=== PATIENT | male | born 1985 | race Caucasian/White ===

== ENCOUNTER 2019-10-01 15:30 | Emergency (ER) | payer SELFPAY ==
--- NOTE | ~2019-10-01 | CT_ITS ---
EXAMINATION: CT brain wo con INDICATION: Head injury COMPARISON: 04/25/2005 TECHNIQUE: Standard unenhanced head CT. The dose-length product (DLP) was 681.00 mGy-cm. The mA was a djusted according to patient size. Iterative reconstruction technique was employed. FINDINGS: There is no intracranial hemorrhage, acute infarction, or abnormal mass lesion. The ventric les are normal. There is no abnormal mass effect or midline shift. The atkins-white matter differentiat ion is normal. The basal cisterns are patent. The orbits are normal. The paranasal sinuses, mastoids and calvarium are normal. IMPRESSION: 1. No acute intracranial abnormality. Reviewed, dictated and finalized at location A.
[2019-10-01 15:38] VITALS: BP 161/116; PULSE 64; RESP 18; TEMP 36.7; O2SAT 100
--- NOTE | 2019-10-01 16:12 | WC.ED.TRAUMA ---
HPI - Trauma General Chief Complaint: Head Injury <Julio Amaro PA-C - Last Filed: 10/01/19 16:37> Stated Complaint: head injury <Julio Amaro PA-C - Last Filed: 10/01/19 16:37> Time Seen by Provider: 10/01/19 15:32 <ROBERTH Sanford Last Filed: 10/01/19 16:37> Source: patient <Julio Amaro PA-C - Last Filed: 10/01/19 16:37> Mode of arrival: ambulatory <Julio Amaro PA-C - Last Filed: 10/01/19 16:37> Limitations: no limitations <Julio Amaro PA-C - Last Filed: 10/01/19 16:37> History of Present Illness HPI narrative: Patient is a 34-year-old male who presents per private vehicle for evaluation of head injury that occurred last night patient was standing when he was struck in the head behind the left ear by a baseball that was thrown by a teenager patient notes he did sustain loss of consciousness has had moderate aching pain to the postauricular region has some nausea has tried gcey-xgs-xibnutu medication with minimal improvement presents in no distress denies other injuries or complaints <Julio Amaro PA-C - Last Filed: 10/01/19 16:37> Related Data Allergies/Adverse Reactions: Allergies Allergy/AdvReac Type Severity Reaction Status Date / Time No Known Allergies Allergy Verified 09/27/19 09:48 <Julio Amaro PA-C - Last Filed: 10/01/19 16:37> Review of Systems Review of Systems: All systems reviewed & are unremarkable except as noted in HPI and below <Julio Amaro PA-C - Last Filed: 10/01/19 16:37> PMFSH Past Medical History Medical History: Medical History GERD without esophagitis <Julio Amaro PA-C - Last Filed: 10/01/19 16:37> Social History Social History: Social History Smoking status: Never smoker Alcohol intake: never Gender identity (if verbalized by the patient): Male <Julio Amaro PA-C - Last Filed: 10/01/19 16:37> Exam Narrative: Exam Narrative: GENERAL: Well-appearing, well-nourished, and in no acute distress. HEAD: Normocephalic, tenderness of the posterior auricular region left-sided no deformities noted other than a small abrasion EYES: PERRLA and EOMI. ENT: Nares clear, no rhinorrhea or epistaxis. Mucous membranes moist. Oropharynx without tonsillar hypertrophy exudate or other lesions NECK: Supple. No adenopathy or masses. CHEST: Clear to auscultation. No respiratory distress. No wheezes rales or rhonchi HEART: Regular rate and rhythm. No murmur heard. EXTREMITIES: Normal range of motion. No edema. No cervical spine tenderness to palpation SKIN: Warm, dry, no rash. NEURO: No focal deficits. Alert and oriented x3. Cranial nerves II through XII grossly intact she has a PSYCH: Normal mood and affect. <ROBERTH Sanford Last Filed: 10/01/19 16:37> Course Course Emergency Course: Patient in the room at this time aware of case findings treatment plan and diagnosis agreeing to follow-up as directed or to return if symptoms worsen or concerns <ROBERTH Sanford Last Filed: 10/01/19 16:37> Vital Signs Vital signs: Vital Signs Temperature 98.1 F 10/01/19 15:38 Pulse Rate 64 10/01/19 15:38 Respiratory Rate 18 10/01/19 15:38 Blood Pressure 161/116 H 10/01/19 15:38 Pulse Oximetry 100 10/01/19 15:38 Temperature 98.1 F 10/01/19 15:38 Pulse Rate 64 10/01/19 15:38 Respiratory Rate 18 10/01/19 15:38 Blood Pressure 161/116 H 10/01/19 15:38 Pulse Oximetry 100 10/01/19 15:38 <ROBERTH Sanford Last Filed: 10/01/19 16:37> Vital Signs Temperature 98.1 F 10/01/19 15:38 Pulse Rate 64 10/01/19 15:38 Respiratory Rate 18 10/01/19 15:38 Blood Pressure 161/116 H 10/01/19 15:38 Pulse Oximetry 100 10/01/19 15:38 Temperature 98.1 F 10/01/19 15:38 Pulse Rate 64 10/01/19 15:38
[2019-10-01 17:02] VITALS: BP 139/93; PULSE 77; RESP 16; TEMP 37; O2SAT 96
== END 2019-10-01 17:03 | disposition home or self-care (01) ==
PROVIDERS: Emergency Provider Emergency Medicine; PCP Family Medicine
DX: S09.90XA Unspecified injury of head, initial encounter (principal); W21.03XA Struck by baseball, initial encounter; K21.9 Gastro-esophageal reflux disease without esophagitis
CPT/HCPCS: 70450; 99284

== ENCOUNTER 2021-06-03 16:04 | Emergency (ER) | payer SELFPAY ==
--- NOTE | ~2021-06-03 | XR_ITS ---
EXAMINATION: XR ankle RT min 3V INDICATION: Ankle pain TECHNIQUE: Four views of the right ankle are obtained COMPARISON: None available FINDINGS: There is soft tissue swelling of ankle. A well-circumscribed oval density distal to the fib christopher has the appearance of an os fibulare. Bone alignment is normal. IMPRESSION: 1. Ankle soft tissue swelling without acute osseous findings. Reviewed, dictated and finalized at location F.
[2021-06-03 16:11] VITALS: BP 138/90; PULSE 62; RESP 18; TEMP 36.7; O2SAT 99
--- NOTE | 2021-06-03 16:17 | ED.LOWEXIN ---
HPI - Extremity Injury (Lower) General Chief Complaint: Extremity Injury, Lower Stated Complaint: Rt Ankle Pain Time Seen by Provider: 06/03/21 16:43 Source: patient and RN notes reviewed Mode of arrival: ambulatory Limitations: no limitations History of Present Illness HPI Narrative: 36-year-old male presents with concern for right ankle pain. He reports he rolled his ankle today. He reports pain at rest with worsening pain with weightbearing and range of motion. He reports that is helpful to wear his tall boot. He denies any open skin, bruising, swelling, redness. He reports pain is exacerbated when he flexes his toes complaint: ankle injury Related Data Allergies Allergy/AdvReac Type Severity Reaction Status Date / Time No Known Allergies Allergy Verified 06/03/21 16:14 Review of Systems Review of Systems: CONSTITUTIONAL: Denies malaise, chills, sweats, or fever. SKIN: Denies rash or itching, open skin, laceration, abrasion, redness, warmth, swelling. MUSCULOSKELETAL: Reports right ankle pain NEUROLOGIC: Denies numbness, weakness All systems reviewed & are unremarkable except as noted in HPI and below PMFSH Past Medical History Medical History (Updated 06/03/21 @ 16:42 by Twyla Zhang NP) Arthritis of right acromioclavicular joint GERD without esophagitis Lateral epicondylitis, right elbow Social History Social History Smoking status: Never smoker Alcohol intake: never Gender identity (if verbalized by the patient): Male Comments At time of signature, agree with nursing past medical, surgical, social and family history. There is no relevant family history pertinent to the presenting complaint Exam Narrative: GENERAL: Well-appearing, well-nourished, and in no acute distress. HEAD: Normocephalic, atraumatic. EYES: PERRLA, conjunctivae clear NECK: Supple. CHEST: Speaks in full sentences. No respiratory distress. HEART: Regular rate and rhythm. Normal and equal peripheral pulses. EXTREMITIES: Right ankle, foot, digits have normal strength and sensation, normal range of motion. No edema or ecchymosis. 5/5 strength with digit flexion and extension. Normal sensation with sensitivity to light touch and pain. Lateral and medial tenderness. No open wounds, no skin tenting, no devitalized tissue or atrophy, no trophic changes, no obvious deformity, alignment normal, nearby joints and structures intact. Distal pulses palpable and equal bilaterally, skin warm, dry, pink. Capillary refill less than 3 seconds. SKIN: Warm, dry, no rash. NEURO: Alert and oriented x3. PSYCH: Normal mood and affect Course Course Emergency Course: Patient is aware of diagnosis, understands and agrees to treatment plan. Anticipatory guidance given. Patient agrees to follow-up as directed and is aware of reasons to seek care at the emergency department. Portions of this record may have been created with voice recognition software Level of Care: Express Care Visit Vital Signs Vital signs: Vital Signs Temperature 98.1 F 06/03/21 16:11 Pulse Rate 62 06/03/21 16:11 Respiratory Rate 18 06/03/21 16:11 Blood Pressure 138/90 06/03/21 16:11 Pulse Oximetry 99 06/03/21 16:11 Temperature 98.1 F 06/03/21 16:11 Pulse Rate 62 06/03/21 16:11 Respiratory Rate 18 06/03/21 16:11 Blood Pressure 138/90 06/03/21 16:11 Pulse Oximetry 99 06/03/21 16:11 Reviewed. MDM - Extremity Injury (Lower) MDM Narrative Medical decision making narrative: Patients injury and pain is consistent with musculoskeletal etiology. No signs of neurological or vascular compromise on exam. Compartments and tissues are soft without signs of compartment syndrome. Pain is felt appropriate for further evaluation on an outpatient basis. Imaging Data My impression: Images reviewed, interpreted by radiologist, agree, see report. Radiologist's impression: EXAMINATION: XR ankle RT min 3V IN
== END 2021-06-03 16:46 | disposition home or self-care (01) ==
PROVIDERS: Emergency Provider Nurse Practitioner; PCP Family Medicine
DX: S93.401A Sprain of unspecified ligament of right ankle, initial encounter (principal); S96.911A Strain of unspecified muscle and tendon at ankle and foot level, right foot, initial encounter; X50.9XXA Other and unspecified overexertion or strenuous movements or postures, initial encounter; K21.9 Gastro-esophageal reflux disease without esophagitis; M19.011 Primary osteoarthritis, right shoulder
CPT/HCPCS: 73610; 99213; G0463

== ENCOUNTER 2021-06-05 16:22 | Emergency (ER) | payer SELFPAY ==
--- NOTE | ~2021-06-05 | XR_ITS ---
EXAM: XR ankle RT min 3V HISTORY: right ankle pain,twisted ankle stepping off porch x3days ago COMPARISON: 06/03/2021 FINDINGS: Normal mineralization. No acute fracture or dislocation. No lytic or blastic lesion. Mild degenerative change at the tibiotalar joint. Old lateral malleolus avulsion fracture versus ossicle. No erosion or periosteal change. Soft tissues within normal limits. Tibiotalar joint fluid. IMPRESSION: No acute osseous finding in the right ankle. Right ankle effusion. Reviewed, dictated and finalized at location K.
[2021-06-05 16:22] VITALS: BP 155/89; PULSE 89; RESP 17; TEMP 36.9; O2SAT 99
--- NOTE | 2021-06-05 17:39 | ED.GENADULT ---
HPI - General Adult General Chief complaint: Extremity Injury, Lower Stated complaint: RIGHT ANKLE INJURY Time Seen by Provider: 06/05/21 16:25 Source: patient and family History of Present Illness HPI narrative: 36-year-old male presented emerged department for evaluation of persistent right ankle pain. Patient states on he rolled his ankle while stepping off a step. Patient did have follow-up at a [facility] care and was told he did not have any acute fractures. Patient states on Monday he did weight-bear on the right ankle and thinks he may have strained his ankle further. Patient reports increased swelling and ecchymosis of the right ankle. Patient does have a prior history of right ankle fracture as a child. Related Data Allergies Allergy/AdvReac Type Severity Reaction Status Date / Time No Known Allergies Allergy Verified 06/03/21 16:14 Review of Systems Review of Systems: CONSTITUTIONAL: Denies fever, chills, or sweats. SKIN: Denies rash or itching. MUSCULOSKELETAL: See HPI NEUROLOGIC: Denies headache, numbness, or weakness. [facility] Past Medical History Medical History (Updated 06/05/21 @ 17:47 by Vincent Rios MD) Arthritis of right acromioclavicular joint GERD without esophagitis Lateral epicondylitis, right elbow Social History Social History Smoking status: Never smoker Alcohol intake: never Gender identity (if verbalized by the patient): Male Exam Narrative: APPEARANCE: Well appearing, no pain, no distress, well-nourished. HEAD: normocephalic, atraumatic. RESPIRATORY: Airway patent, respirations nonlabored. Clear to auscultation bilaterally, no rales, rhonchi, wheezing. CARDIOVASCULAR: Regular rate and rhythm without murmurs rubs or gallops. ABDOMINAL: Soft, nontender, nondistended, normal bowel sounds MUSCULOSKELETAL: Right ankle swelling medially and laterally. Ecchymosis medially and laterally. No proximal tib-fib tenderness to palpation. No foot tenderness to palpation NEURO: Alert. Cranial nerves II through XII intact. Good gait. Good coordination SKIN: Warm, dry. Normal Color Course Course Emergency Course: Patient was updated on the results of his x-ray. Patient was placed in Hector wrap for comfort and provided crutches for nonweightbearing. Vital Signs Vital signs: Vital Signs Temperature 98.4 F 06/05/21 16:22 Pulse Rate 89 06/05/21 16:22 Respiratory Rate 17 06/05/21 16:22 Blood Pressure 155/89 H 06/05/21 16:22 Pulse Oximetry 99 06/05/21 16:22 Temperature 98.4 F 06/05/21 16:22 Pulse Rate 89 06/05/21 16:22 Respiratory Rate 17 06/05/21 16:22 Blood Pressure 155/89 H 06/05/21 16:22 Pulse Oximetry 99 06/05/21 16:22 Medical Decision Making Vital Signs Vital Signs: Vital Signs Temperature 98.4 F 06/05/21 16:22 Pulse Rate 89 06/05/21 16:22 Respiratory Rate 17 06/05/21 16:22 Blood Pressure 155/89 H 06/05/21 16:22 Pulse Oximetry 99 06/05/21 16:22 Temperature 98.4 F 06/05/21 16:22 Pulse Rate 89 06/05/21 16:22 Respiratory Rate 17 06/05/21 16:22 Blood Pressure 155/89 H 06/05/21 16:22 Pulse Oximetry 99 06/05/21 16:22 Imaging Data Radiologist's impression: Impressions Ankle X-Ray 06/05/21 16:49 IMPRESSION: No acute osseous finding in the right ankle. Right ankle effusion. Discharge Plan Discharge Clinical Impression: Abrasion, right ankle, initial encounter Patient Disposition: Home, Self-Care Condition: Stable Instructions: Antibiotic Form, Ankle Sprain (ED), Crutch Instructions (ED) Additional Instructions: Tylenol and ibuprofen for pain control. Substitute Tylenol for [place] if you need additional pain control. Hector wrap and stirrup splint for increased ankle support. Crutches for nonweightbearing. Have close follow-up with your primary care physician. If you have any worsening symptoms then please call or
[2021-06-05] MEDS: HYDROcodone/acetaminophen (*CRX) 5-325 MG TABLET 1 TAB PO (17:50)
== END 2021-06-05 17:53 | disposition home or self-care (01) ==
PROVIDERS: Emergency Provider Emergency Medicine; PCP Family Medicine
DX: S90.511A Abrasion, right ankle, initial encounter (principal); M19.011 Primary osteoarthritis, right shoulder; K21.9 Gastro-esophageal reflux disease without esophagitis; X50.9XXA Other and unspecified overexertion or strenuous movements or postures, initial encounter
CPT/HCPCS: 73610; 99283; A9270

== ENCOUNTER → 2021-08-25 09:07 | Outpatient (CLI) | payer SELFPAY ==
--- NOTE | ~2021-08-25 | MR_ITS ---
EXAMINATION: MR elbow RT wo con DATE: 08/25/2021 09:49 INDICATION: Right elbow pain TECHNIQUE: Magnetic resonance imaging (MRI) of the right elbow was performed without intravenous cont rast. Sequences included coronal, axial, and sagittal PD-weighted FS FSE and coronal, axial, and sagi ttal PD-weighted FSE. COMPARISON: None FINDINGS: Osseous/other: Normal alignment. Normal marrow signal with no marrow edema, fracture, osteochondral lesion or abnor mal marrow replacing process. Mild nonuniform partial-thickness cartilage loss with smooth chondral s urface along portions of the radial head without degenerative subchondral changes. Remaining cartilag e appears normal. Tendons: Triceps, biceps brachii and brachialis tendons are normal. Common flexor tendon wad is normal. Moder ate tendinopathy without discrete tear of the common extensor tendon wad. Ligaments: The medial collateral ligament complex is normal. Partial tear of the lateral collateral ligament com plex with partial avulsion of the superficial aspect of the humeral footplate of the lateral collater al ligament and involving greater than 50% of the cross-sectional area of the ligament and with minim al partial tear of the humeral side of the lateral ulnar collateral ligament portion of the ligament complex. Annular component of the ligament complex is normal. Cubital tunnel: Cubital tunnel is unremarkable with normal signal and caliber of the ulnar nerve. Fluid: Physiologic amount of fluid the elbow joint. IMPRESSION: 1. Partial tear of the lateral collateral ligament complex. 2. Moderate tendinopathy without discrete tear of the common extensor tendon wad. 3. 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 Reviewed, dictated and finalized at location B. IMPRESSION: 1. Partial tear of the lateral collateral ligament complex. 2. Moderate tendinopathy without discrete tear of the common extensor tendon wa d. 3. Mild radiocapitellar osteoarthritis with mild partial-thickness cartilage lo ss along the radial head.
== END ==
PROVIDERS: PCP Family Medicine; Visit Provider Orthopaedic Surgery
DX: M19.021 Primary osteoarthritis, right elbow (principal); S53.431A Radial collateral ligament sprain of right elbow, initial encounter
CPT/HCPCS: 73221

== ENCOUNTER 2021-10-01 10:38 | Emergency (ER) | payer SELFPAY ==
[2021-10-01 10:59] VITALS: BP 142/95; PULSE 58; RESP 18; TEMP 36.3; O2SAT 100
--- NOTE | 2021-10-01 11:32 | ED.GENADULT ---
HPI - General Adult General Chief complaint: Wound/Laceration Stated complaint: Head Laceration History of Present Illness HPI narrative: Patient is a 36-year-old male who presents to the [facility] via POV for an evaluation of a scalp laceration that occurred this morning. Patient reports he was walking in his garage when he accidentally scraped his head on a metal shelf. Denies cleaning the wound after the incident. He does report some minor bleeding that has resolved. He has not sure if he is up-to-date on tetanus immunization. Related Data Home Medications Medication Instructions Recorded Confirmed pantoprazole 20 mg tablet,delayed 20 mg DAILY 10/01/21 10/01/21 release Allergies Allergy/AdvReac Type Severity Reaction Status Date / Time No Known Allergies Allergy Verified 10/01/21 11:07 Review of Systems Review of Systems: Pertinent negatives: fever, chills, sweats, change in appetite, poor p.o. intake, headache, dizziness, lymphadenopathy, vision changes, swelling, erythema, weakness, syncope, vertigo, LOC, seizure activity, memory loss, difficulty with coordination/gait/equilibrium, paresthesias, abdominal pain, nausea, vomiting, diarrhea, constipation, shortness of breath, cough, chest pain, and heart palpitations/murmurs. [facility] Past Medical History Medical History Arthritis of right acromioclavicular joint GERD without esophagitis Lateral epicondylitis, right elbow Social History Social History Smoking status: Never smoker Alcohol intake: never Gender identity (if verbalized by the patient): Male Comments I have reviewed and agree with the patient's past medical, surgical, social, and family hx as documented by the RN. There is no relevant family history pertinent to the presenting complaint. Exam Narrative: GENERAL: Well-appearing, well-nourished, and in no acute distress. HEAD: Normocephalic. No facial swelling appreciated. 5 cm superficial laceration noted to center of left and right parietal area. Laceration is clean and linear. EYES: PERRLA and EOMI. No evidence of erythema, swelling, or drainage. ENT: Nares clear, no rhinorrhea or epistaxis.Mucous membranes moist and pink. Uvula is midline without erythema and swelling. No evidence of obstruction, petechial rash, cobblestoning, lesions, ulcers, erythema, swelling, exudates, peritonsillar abscess, tenting, or drooling. Breath odor and voice normal. NECK: Supple. No Lymphadenopathy or nuchal rigidity appreciated. CHEST: Bilateral lung sneed are clear to auscultation. No respiratory distress. No evidence of cough or pleuritic cp upon examination. HEART: Bradycardia with rate of 58. Regular rhythm. No murmur, gallop, or rub heard. EXTREMITIES: Normal range of motion. No edema. SKIN: Warm, dry. No evidence of cellulitis, abscess, streaking, induration, abrasions/lacerations, petechiae, hematoma, contusion, drainage, or bleeding. NEURO: No focal deficits. Alert and oriented x3. SPECIAL OBSERVATIONS: Smiling. Laughing. No evidence of discomfort. Course Course Level of Care: Express Care Visit Vital Signs Vital signs: Vital Signs Temperature 97.4 F L 10/01/21 10:59 Pulse Rate 58 L 10/01/21 10:59 Respiratory Rate 18 10/01/21 10:59 Blood Pressure 142/95 H 10/01/21 10:59 Pulse Oximetry 100 10/01/21 10:59 Oxygen Delivery Room Air 10/01/21 10:59 Temperature 97.4 F L 10/01/21 10:59 Pulse Rate 58 L 10/01/21 10:59 Respiratory Rate 18 10/01/21 10:59 Blood Pressure 142/95 H 10/01/21 10:59 Pulse Oximetry 100 10/01/21 10:59 Oxygen Delivery Room Air 10/01/21 10:59 Procedures Laceration Laceration 1: Date: 10/01/21 Time: 11:36 Site: scalp Size (cm): 5 Description: linear Depth: simple, single layer ====== Skin Level ======
== END 2021-10-01 11:43 | disposition home or self-care (01) ==
PROVIDERS: Emergency Provider Nurse Practitioner Family; PCP Family Medicine
DX: S01.01XA Laceration without foreign body of scalp, initial encounter (principal); W22.8XXA Striking against or struck by other objects, initial encounter; M19.011 Primary osteoarthritis, right shoulder; K21.9 Gastro-esophageal reflux disease without esophagitis
CPT/HCPCS: 12002; 99212; G0463

== ENCOUNTER 2021-10-26 00:34 | Day surgery (SDC) | payer SELFPAY ==
[2021-10-21 14:52] VITALS: BMI 27.1
--- NOTE | 2021-10-21 15:06 | PC.NURSE ---
Report to the Outpatient Waiting Room, entrance under the green pavilion located off [facility], at time ___629____ on date __10/26/21 . OR Time: . Time changes happen often and if your time is changed the preop area will call you the afternoon before. - You and your visitor will be asked to self-screen and do not enter if you have any COVID symptoms. - Only one visitor and NO children visitors are allowed at this time. - The patient visitor is requested to leave or wait in car when not with patient due to restrictions. - A mask is required within the hospital. Patients may have clear liquids (water, carbonated beverages, clear teas, apple juice) until 3 hours prior to surgery with a maximum of 20 ounces. - No food from midnight until time of surgery - Infants may have breast milk until 4 hours before surgery, formula 6 hours prior to surgery. - Children will be allowed to drink immediately following surgery. If applicable, please bring a bottle or sippy cup to assist with drinking. Juice, water, soda, and popsicles are readily available. For infants on formula, please bring formula the day of surgery. Pacifiers are allowed. Take the following medications with a SIP of water the morning of surgery: ____N/A Medications to discontinue per physician N/A Date to take last dose Please no make-up, nail ivorian, hairspray, perfume, deodorant, or body powder the day of surgery. No jewelry (including any body piercings) or valuables the day of surgery, leave them at home. Please take a shower or bath the night before, or the morning of, surgery with an antibacterial soap. Wear comfortable, loose fitting clothing. Children are encouraged to wear pajamas. - Jewelry must be removed prior to entering the operating room. Rings and piercings that are not removed may be cut off. - The hospital will not accept responsibility for valuables. - Please leave all valuables, including medications, at home the day of surgery. If you are going home after surgery, a licensed trolley coach driver must drive you home. - NO public transportation without another adult. - We recommend that an adult stay with you for 24 hours following discharge. - We also recommend that you do not drive, make important decision, drink alcoholic beverages, or take any drugs that were not prescribed by your health care provider for at least 24 hours after your discharge time. For Pediatric surgeries, we recommend two adults accompany the child home (only one inside the building at this time). Follow any additional instructions given to you from your surgeon. If you or anyone in your household have experienced Covid symptoms in the past week, please notify your surgeon or the nurse liaison at the phone number below for possible testing. Telephone instructions given to __PATIENT and asked if any additional questions and then verbalized understanding. Patient advised to call surgeon office or pre surgery nurse liaison [phone] if any additional questions.
[2021-10-26] VITALS (9 sets, daily range): BP systolic 111–148; BP diastolic 55–91; PULSE 41–59; RESP 11–16; TEMP 36.3–36.4; O2SAT 99–100
[2021-10-26] MEDS: LACTATED RINGERS 1,000 ML 30 ML IV CONT (07:10)
[2021-10-26] MEDS: ACETAMINOPHEN 500 MG TABLET 1000 MG PO (07:15)
[2021-10-26] MEDS: KETOROLAC 15 MG/ML VIAL (*BKC) IV PUSH (07:15)
--- NOTE | 2021-10-26 07:16 | P.PNAN_ITS ---
Anes - Initial Pre Proc Eval Procedure: Operation Date: 10/26/21 08:30 Proposed Procedures p Debride Right Lateral Epicondyle - Lux Zavala MD Date/Time: 10/26/21 07:16 Surgeon: Lux Zavala MD Pre Op Diagnosis: right lateral epicondylitis Patient Data Age: 36 Gender: M Height: 1.78 m Weight: 86 kg Allergies Allergy/AdvReac Type Severity Reaction Status Date / Time No Known Allergies Allergy Verified 10/21/21 15:05 Home Medications Medication Instructions Recorded Confirmed Type pantoprazole 20 mg tablet,delayed 20 mg PO DAILY 10/01/21 10/19/21 History release Patient hx anesthesia problems: none Family hx anesthesia problems: none Results Review: All pre-operative results and documents have been reviewed as part of the pre- operative evaluation. [facility] Past Medical History Medical History Arthritis of right acromioclavicular joint BMI 27.0-27.9,adult GERD without esophagitis Laceration of head Lateral epicondylitis, right elbow Social History Social History Smoking status: Never smoker Alcohol intake: never Gender identity (if verbalized by the patient): Male Spiritual care concerns: No Anes - Eval Final PreProcedure Day of Procedure 10/26/21 07:16 Patient weight: overweight Heart: regular rate and rhythm Lungs: clear to auscultation Airway: Mallampati scale class II Neurological: alert and oriented Last oral intake: >/= 8 hours ASA classification: II Emergent: no Anesthetic plan: proceed Anesthesia type and monitoring: general LMA and standard monitoring Results Review: All pre-operative results and documents have been reviewed as part of the pre- operative evaluation. Informed Consent: The patient's anesthetic plan and its attendant risks and benefits were discussed with the patient/family/POA. Questions were solicited and answers provided to the satisfaction of the patient/family/POA.
--- NOTE | 2021-10-26 08:12 | WPDHPUPDATE1 ---
History and Physical Update Update Date/Time: 10/26/21 08:12 History and Physical has been reviewed, including an updated exam of the patient. There are NO changes in the patient's condition. Risks, benefits, and alternatives have been discussed and questions answered. Patient agrees to proceed with procedure.
[2021-10-26] MEDS: ceFAZolin 2 GM/D5W 50 ML 2 GM/50 ML BAG IVPB (08:30)
[2021-10-26] MEDS: BUPIVACAINE/EPINEPHRINE 0.25% 50 ML VIAL INFILTRATE (08:56)
--- NOTE | 2021-10-26 09:27 | P.OP_ITS ---
Procedure Note - Detailed Date of Procedure 10/26/21 Pre-op Diagnosis right lateral epicondylitis Post-op Diagnosis Same Procedure Performed Debridement right lateral epicondyle Surgeon Lux Zavala MD Major Account Representative Janette Ryan Anesthesia General Description of Procedure The patient was identified and proper site identified. He was taken to the operating room and transferred to the OR table placing him supine taking care to pad his torso and extremities. After general anesthetic induction and intubation a nonsterile tourniquet was placed high on the right arm. Right upper extremity was prepped and draped free in usual sterile fashion. Several cc of 0.25% Marcaine and epinephrine solution was infiltrated in subcutaneous tissue over the right lateral epicondyle. It was exsanguinated and tourniquet was inflated to 250 millimeters mercury remaining up for 18 minutes. Longitud inal incision was made extending distally from the lateral epicondyle in line with the fibers of the common extensor origin. Subcutaneous tissue sharply dissected down to the forearm fascia. This was elevated off of the lateral epicondyle as muscular attachments. The tendon was released from the epicondyle in a T fashion exposing the degenerative tissue. Care was taken to avoid penetration into the elbow joint and disruption of the LUCL. The tendon was debrided back to healthier appearing tissue. Wounds irrigated with sterile saline. Tendon edges reapproximated [id number]-wfep with 4-0 Monocryl as with the deeper layers of the subcu. Three 0 V lock and tissue adhesive were used for the skin closure. Sterile dressing was applied. Tourniquet was released. He tolerated the procedure well. He was awakened, extubated, and taken recovery area in stable condition. Estimated blood loss was negligible. He received perioperative antibiotics. There were no known intraoperative complications. He received perioperative antibiotics. Estimated Blood Loss 2 Tourniquet Time 18 Drains No Packing No Complications No immediate complications Condition Stable Disposition PACU
[2021-10-26] MEDS: fentaNYL CITRATE INJ (*CRX) 100 MCG/2 ML VIAL 25 MCG IV PUSH ×2 (10:04→10:16)
[2021-10-26] MEDS: oxyCODONE HCL (*CRX) 5 MG TAB IR PO (10:32)
== END 2021-10-26 11:14 | disposition home or self-care (01) ==
PROVIDERS: PCP Family Medicine; Visit Provider Orthopaedic Surgery
PROC: (CPT 24110; principal; 2021-10-26 08:30)
DX: M77.11 Lateral epicondylitis, right elbow (principal); K21.9 Gastro-esophageal reflux disease without esophagitis; M19.90 Unspecified osteoarthritis, unspecified site
CPT/HCPCS: 24359; A4565; A9270; J0690; J1100; J1885; J2250; J2405; J2704; J3010; J7120

== ENCOUNTER 2022-07-28 08:41 | Emergency (ER) | payer BC, SELFPAY ==
--- NOTE | ~2022-07-28 | XR_ITS ---
EXAMINATION: XR foot LT min 3V DATE: 07/28/2022 09:11 INDICATION: Left foot pain. TECHNIQUE: 4 views of left foot were obtained. COMPARISON: Left knee radiograph 08/11/2010 FINDINGS: Bone alignment is normal. No fracture. There is mild osteoarthritis of first metatarsophala ngeal joint. IMPRESSION: 1. Mild osteoarthritis of first metatarsophalangeal joint. Reviewed, dictated and finalized at location A.
[2022-07-28 08:59] VITALS: BP 143/104; PULSE 96; RESP 18; TEMP 36.6; O2SAT 100
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
== END 2022-07-28 09:39 | disposition home or self-care (01) ==
PROVIDERS: Emergency Provider Nurse Practitioner Family; PCP Family Medicine
DX: L03.116 Cellulitis of left lower limb (principal); K21.9 Gastro-esophageal reflux disease without esophagitis; M19.011 Primary osteoarthritis, right shoulder
CPT/HCPCS: 73630; 99213; G0463

== ENCOUNTER 2022-08-05 19:33 | Emergency (ER) | payer BC, SELFPAY ==
--- NOTE | ~2022-08-05 | XR_ITS ---
EXAM: XR finger 2nd RT min 2V, XR finger 3rd RT min 2V DATE: 08/05/2022 20:59 HISTORY: finger laceration TO DISTAL 2ND AND 3RD DIGITS ON . COMPARISON: None available. FINDINGS: Normal mineralization. No fracture or dislocation. No lytic or blastic lesion. Joint space s are maintained. No erosion or periosteal change. Soft tissues within normal limits. IMPRESSION: No acute osseous finding in the right second or third fingers. Reviewed, dictated and finalized at location K. IMPRESSION: No acute osseous finding in the right second or third fingers.
[2022-08-05 19:44] VITALS: BP 143/107; PULSE 106; RESP 18; TEMP 36.6; O2SAT 96
--- NOTE | 2022-08-05 20:23 | ED.WOUNDLAC ---
HPI - Wound/Laceration General Chief Complaint: Wound/Laceration Stated Complaint: finger lacerations Time Seen by Provider: 08/05/22 20:22 Source: patient Mode of arrival: ambulatory Limitations: no limitations History of Present Illness HPI narrative: Patient is 37 years old white male presented to the ED with injury to the tips of right index and right middle finger while trying to push ice in the snowcone maker and blades turned on while his right hand was inside the snow cone maker. Unknown last tetanus shot. Related Data Allergies Allergy/AdvReac Type Severity Reaction Status Date / Time No Known Allergies Allergy Verified 08/05/22 19:47 Review of Systems Review of Systems: All systems reviewed & are unremarkable except as noted in HPI and below PMFSH Past Medical History Medical History Arthritis of right acromioclavicular joint BMI 27.0-27.9,adult GERD without esophagitis Laceration of head Surgical History Surgical History Lateral epicondylitis, right elbow Debridement October 26, 2021 Social History Social History Smoking status: Never smoker Alcohol intake: never Living arrangements: with family Occupation/Education: occupation Gender identity (if verbalized by the patient): Male Spiritual care concerns: No Exam Narrative: General appearance: Well-developed, well-nourished Skin: Normal color Chest and respiratory: Airway patent, no respiratory distress, no accessory muscle use Heart: Regular rate/rhythm Vascular: Normal peripheral pulses, Musculoskeletal: Right middle finger showed skin avulsion 1 x half centimeter, profuse bleeding. No tendon involvement, patient did not bring in the amputated skin with him. The tip of the right index showed half centimeter laceration across the nail, no gapping. 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 Date: 08/05/22 Time: 21:49 Vital Signs Vital signs: Vital Signs Temperature 36.6 C 08/05/22 19:44 Pulse Rate 106 H 08/05/22 19:44 Respiratory Rate 18 08/05/22 19:44 Blood Pressure 143/107 H 08/05/22 19:44 Pulse Oximetry 96 08/05/22 19:44 Oxygen Delivery Room Air 08/05/22 19:44 Temperature 36.6 C 08/05/22 19:44 Pulse Rate 106 H 08/05/22 19:44 Respiratory Rate 18 08/05/22 19:44 Blood Pressure 143/107 H 08/05/22 19:44 Pulse Oximetry 96 08/05/22 19:44 Oxygen Delivery Room Air 08/05/22 19:44 Procedures Laceration Laceration 1: Date: 08/05/22 Time: 21:52 Site: other (Skin avulsion to the tip of the right middle finger. 1 cm by half centimeter) Side (If applicable): right Size (cm): 1 Description: clean and other (Skin avulsion) Depth: simple, single layer Local Anesthetic: none (Ring anesthesia of the right middle finger) Amount of anesthesia used (mL): 5 Pre-repair: wound explored, irrigated and deep structures intact ====== Skin Level ====== Skin layer closed with: dermabond and other (I did use the rubber ring to stop the bleeding at the tip of the finger then Dermabond used.) ====== Subcutaneous Layer ====== ====== Muscle Layer ====== ====== Tendon Layer ====== Laceration 2: Date: 08/05/22 Time: 21:57 Site: other (Right index, the tip) Side
[2022-08-05] MEDS: TETANUS,DIPHTHERIA,AC PERTUSSIS ADULT (0.5 ML) BOOSTRIX IM (20:41)
[2022-08-05 22:07] VITALS: BP 132/90; PULSE 88; RESP 15; O2SAT 16
== END 2022-08-05 22:09 | disposition home or self-care (01) ==
PROVIDERS: Emergency Provider Emergency Medicine; PCP Family Medicine
DX: S61.212A Laceration without foreign body of right middle finger without damage to nail, initial encounter (principal); S61.210A Laceration without foreign body of right index finger without damage to nail, initial encounter; W31.89XA Contact with other specified machinery, initial encounter; Z23 Encounter for immunization; K21.9 Gastro-esophageal reflux disease without esophagitis
CPT/HCPCS: 12001; 73140; 90471; 90715; 99283

== ENCOUNTER 2023-07-01 09:15 | Emergency (ER) | payer OTHER, SELFPAY ==
[2023-07-01 09:35] VITALS: BP 135/96; PULSE 68; RESP 15; TEMP 36.4; O2SAT 96
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
[2023-07-01 10:11] VITALS: BP 133/95; PULSE 65; RESP 14; TEMP 36.4; O2SAT 96
== END 2023-07-01 10:13 | disposition home or self-care (01) ==
PROVIDERS: Emergency Provider Emergency Medicine; PCP Family Medicine
DX: R51.9 Headache, unspecified (principal); M54.2 Cervicalgia; M54.50 Low back pain, unspecified; K21.9 Gastro-esophageal reflux disease without esophagitis; V53.5XXA Driver of pick-up truck or van injured in collision with car, pick-up truck or van in traffic accident, initial encounter
CPT/HCPCS: 99283; L0140

== ENCOUNTER 2024-03-06 07:25 | Outpatient (CLI) | payer OTHER, SELFPAY ==
--- NOTE | 2024-03-06 07:37 | ECHO_ITS ---
Patient Info Name: Aguila Calixto Age: 39 years : 1985 Gender: Male Ht: 70 in Wt: 200 lbs BSA: 2.14 m2 HR: 45 bpm BP: 155 / 112 mmHg Heart Rhythm: Bradycardia Technical Quality: Good Exam Date: 03/06/2024 7:42 AM Exam Location: Echo Lab Patient Status: Outpatient Admit Date: 03/06/2024 Staff Ordering Physician: Donell Baugh DO [employer] Team Leader: Cristela Lara RDCS Attending Provider: Donell Baugh DO Referring Physician: Amauri MEJIA; Exam Type: CA echo doppler color flow Study Info Indications I34.1 - Nonrheumatic mitral (valve) prolapse Complete two-dimensional, color flow and Doppler transthoracic echocardiogram is performed. Summary 1. Complete two-dimensional, color flow and Doppler transthoracic echocardiogram is performed. 2. Left ventricular chamber dimension is normal. 3. Left ventricular systolic function is normal, estimated at 60-65%. 4. The left ventricular diastolic function is grade I diastolic dysfunction. 5. E/e' 11 is mildly elevated. 6. There is trace aortic valve regurgitation. 7. There is trace tricuspid valve regurgitation. 8. No pulmonary hypertension, estimated pulmonary arterial systolic pressure is 21 mmHg. 9. There is trace pulmonic regurgitation. Left Ventricle E/e' 11 is mildly elevated. Left ventricular chamber dimension is normal. Left ventricular systolic function is normal, estimated at 60-65%. The left ventricular diastolic function is grade I diastolic dysfunction. Right Ventricle Right ventricular systolic function is normal and with normal TAPSE 1.8 cm. Right ventricular chamber dimension is normal. Left Atria Left atrial chamber dimension is normal. Right Atria Right atrial chamber dimension is normal. Aortic Valve The aortic valve is probable trileaflet. There is no aortic valve stenosis. There is trace aortic valve regurgitation. Pulmonic Valve There is trace pulmonic regurgitation. Mitral Valve No mitral valve prolapse. There is no mitral valve stenosis. There is no mitral valve regurgitation. Tricuspid Valve There is trace tricuspid valve regurgitation. No pulmonary hypertension, estimated pulmonary arterial systolic pressure is 21 mmHg. Pericardium/Pleural There is no pericardial effusion. Inferior Vena Cava Normal inferior vena cava with >50% collapse upon inspiration consistent with normal right atrial pressure, 5 mmHg. Aorta The aortic root size at the sinus of Valsalva is normal. Left Ventricular Outflow Tract Name Value Normal LVOT 2D LVOT Diameter 2.1 cm LVOT Doppler LVOT Peak Gradient 3 mmHg LVOT Mean Gradient 1 mmHg LVOT VTI 17 cm LVOT VTI/AV VTI Ratio 0.6 LVOT Stroke Volume 61 ml LVOT CO 2.9 l/min LVOT CI 1.3 l/min/m2 Pulmonic Valve Name Value Normal RVOT Doppler RVOT Peak Gradient 1 mmHg PV Doppler PV Peak Gradient 4 mmHg Mitral Valve Name Value Normal MV Doppler MV Decel Radford 460 cm/s2 MV PHT 59 ms MV Area (PHT) 3.7 cm2 4.0-5.0 MV Diastolic Function MV E Peak Velocity 94 cm/s MV A Peak Velocity 96 cm/s MV E/A 1.0 MV Decel Time 204 ms MV Annular TDI MV E/e' (Septal) 14.2 <=8.0 MV E/e' (Lateral) 10.3 <=8.0 MV E/e' (Average) 12.2 Tricuspid Valve Name Value Normal TV Regurgitation Doppler TR Peak Velocity 198 cm/s TR Peak Gradient 16 mmHg Estimated PAP/RSVP RA Pressure 5 mmHg <=5 PA Systolic Pressure 21 mmHg <36 RV Systolic Pressure 21 mmHg <36 Aorta Name Value Normal Ascending Aorta Ao Root Diameter (MM) 4.1 cm Ao Root Diam Index (MM) 1.9 cm/m2 Aortic Valve Name Value Normal AV Doppler AV Peak Velocity 154 cm/s AV Peak Gradient 9 mmHg AV Mean Gradient 5 mmHg AV VTI 29 cm AV Area (Cont Eq VTI) 2.1 cm2 >=3.0 AV Area (Cont Eq [place]) 1.9 cm2 AV Regurgitation 2D LVOT Area 3.5 cm2 AV Regurgitation Doppler AR Decel Time 3,394 ms AR Decel Radford 67 cm/s2 AR PHT 984 ms Ventricles Name Value Normal LV Dimensions 2D/MM IVS Diastolic Thickness (2D) 1.1 cm 0.6-1.0 LVID Diastole (2D) 5.6 cm 4.2-5.8 LVIW Diastolic Thickness (2D) 1.0 cm 0.6-1.0 LVID Systole (2D) 3.6 cm 2.5-4.0 LVOT Diameter 2.1 cm LV Mass (2D Cubed) 231.23 g 88.00-224.00 LV Mass Index (2D Cubed) 108 g/m2 49-115 Relative Wall Thickness (2D) 0.35 LV Fractional Shortening/Ejection Fraction 2D/MM LV Fractional Shortening (2D) 35 % 25-43 LV EF (2D Teicholz) 64 % 52-72 LV Diastolic Volume (4C MOD) 112 ml LV EF (4C MOD) 62 % LV Diastolic Volume (2C MOD) 81 ml LV EF (2C MOD) 68 % LV Diastolic Volume (BP MOD) 96 ml 62-150 LV Diastolic Volume Index (BP MOD) 45 ml/m2 34-74 LV Systolic Volume (BP MOD) 34 ml 21-61 LV Systolic Volume Index (BP MOD) 16 ml/m2 11-31 LV EF (BP MOD) 65 % 52-72 LV Diastolic Length (4C) 9.0 cm LV Systolic Length (4C) 6.7 cm LV Stroke Volume (4C MOD) 69 ml Atria Name Value Normal LA Dimensions LA Dimension (MM) 4.0 cm 3.0-4.1 LA Volume (4C A-L) 54 ml LA Volume (BP A-L) 53 ml RA Dimensions RA Area (4C) 12.4 cm2 <=18.0 Report Signatures
--- NOTE | 2024-03-06 08:30 | EST_ITS ---
Patient Info Name: Aguila Calixto Age: 39 years : 1985 Gender: Male Ht: 70 in Wt: 200 lbs BSA: 2.14 m2 HR: 66 bpm BP: 135 / 92 mmHg Exam Date: 03/06/2024 9:34 AM Exam Location: Echo Lab Patient Status: Outpatient Admit Date: 03/06/2024 Staff Ordering Physician: Donell Baugh DO Attending Provider: Donell Baugh DO Exercise Technologist: Cristela Lara RDCS Exercise Physician: Donell Baugh DO Exam Type: CA stress test treadmill Study Info A treadmill exercise stress test was performed. Summary 1. 1. Negative Marcos exercise stress test for ischemic ST changes by ECG criteria. 2. 2. Good functional capacity, achieving 12 METs of workload. 3. 3. Appropriate HR response to exercise. 4. 4. Appropriate HR recovery at 1 minute post exercise. 5. 5. No imaging with stress testing. 6. 6. Patient informed of the above results. Protocol: Marcos Stress ECG Details Stage: REST Duration (min): 1 min : 7 sec Speed (mph): 0.0 Grade (%): 0 HR (bpm): 66 SBP (mmHg): 135 DBP (mmHg): 92 METS: --- Stage: REST Duration (min): 10 min : 48 sec Speed (mph): 0.0 Grade (%): 0 HR (bpm): 78 SBP (mmHg): 135 DBP (mmHg): 92 METS: --- Stage: STAGE 1 Duration (min): 1 min : 0 sec Speed (mph): 1.7 Grade (%): 10 HR (bpm): 94 SBP (mmHg): 135 DBP (mmHg): 92 METS: --- Stage: STAGE 1 Duration (min): 2 min : 0 sec Speed (mph): 1.7 Grade (%): 10 HR (bpm): 99 SBP (mmHg): 135 DBP (mmHg): 92 METS: --- Stage: STAGE 1 Duration (min): 3 min : 0 sec Speed (mph): 1.7 Grade (%): 10 HR (bpm): 98 SBP (mmHg): 163 DBP (mmHg): 86 METS: --- Stage: STAGE 2 Duration (min): 1 min : 0 sec Speed (mph): 2.5 Grade (%): 12 HR (bpm): 105 SBP (mmHg): 163 DBP (mmHg): 86 METS: --- Stage: STAGE 2 Duration (min): 2 min : 0 sec Speed (mph): 2.5 Grade (%): 12 HR (bpm): 105 SBP (mmHg): 160 DBP (mmHg): 82 METS: --- Stage: STAGE 2 Duration (min): 3 min : 0 sec Speed (mph): 2.5 Grade (%): 12 HR (bpm): 112 SBP (mmHg): 160 DBP (mmHg): 82 METS: --- Stage: STAGE 3 Duration (min): 1 min : 0 sec Speed (mph): 3.4 Grade (%): 14 HR (bpm): 126 SBP (mmHg): 160 DBP (mmHg): 82 METS: --- Stage: STAGE 3 Duration (min): 2 min : 0 sec Speed (mph): 3.4 Grade (%): 14 HR (bpm): 130 SBP (mmHg): 188 DBP (mmHg): 108 METS: --- Stage: STAGE 3 Duration (min): 3 min : 0 sec Speed (mph): 3.4 Grade (%): 14 HR (bpm): 135 SBP (mmHg): 201 DBP (mmHg): 103 METS: --- Stage: STAGE 4 Duration (min): 1 min : 0 sec Speed (mph): 4.2 Grade (%): 16 HR (bpm): 155 SBP (mmHg): 201 DBP (mmHg): 103 METS: --- Stage: STAGE 4 Duration (min): 2 min : 0 sec Speed (mph): 4.2 Grade (%): 16 HR (bpm): 166 SBP (mmHg): 193 DBP (mmHg): 98 METS: --- Stage: STAGE 4 Duration (min): 2 min : 0 sec Speed (mph): 4.2 Grade (%): 16 HR (bpm): 166 SBP (mmHg): 193 DBP (mmHg): 98 METS: --- Stage: RECOVERY Duration (min): 0 min : 59 sec Speed (mph): 0.0 Grade (%): 0 HR (bpm): 137 SBP (mmHg): 193 DBP (mmHg): 98 METS: --- Stage: RECOVERY Duration (min): 1 min : 59 sec Speed (mph): 0.0 Grade (%): 0 HR (bpm): 115 SBP (mmHg): 193 DBP (mmHg): 98 METS: --- Stage: RECOVERY Duration (min): 2 min : 59 sec Speed (mph): 0.0 Grade (%): 0 HR (bpm): 108 SBP (mmHg): 170 DBP (mmHg): 85 METS: --- Stage: RECOVERY Duration (min): 3 min : 7 sec Speed (mph): 0.0 Grade (%): 0 HR (bpm): 114 SBP (mmHg): 170 DBP (mmHg): 85 METS: --- Rest HR: 78 bpm Peak HR: 166 bpm Rest Sys BP: 135 mmHg Peak Sys BP: 201 mmHg Max Pred HR: 180 bpm % Max Pred HR: 92 % Target HR: 153 bpm Max RPP: 33,366 bpm*mmHg Jorgensen Score: 7 Termination Reason: Reached target heart rate or workload Cardiac Symptoms: Shortness of breath Max ST Seg Deviation: 0.80 mm Total Time: 11 min : 0 sec Rest Diaz BP: 92 mmHg Peak Diaz BP: 103 mmHg Angina Score: None Total METS: 12.1 Resting ECG Sinus rhythm. Stress ECG No ST changes. Arrhythmias None. Report Signatures
--- OUTSIDE RECORDS SUMMARY | 2024-03-07 21:15 | XMS_ITS | Clinical Summary ---
Author Organization [facility] Address [address] [place] [address]. [place], [place] [id number] [place] [id number] Care Team Providers Care Inside Upholsterer Name Role Phone Julius Garzon MD Primary Care Provider [phone] Allergies No known active allergies Medications No known medications Encounters Date Type Department Care Team Description 01/02/2024 10:18 AM PREASSEMBLER AND INSPECTOR - 01/02/2024 12:38 PM PREASSEMBLER AND INSPECTOR Emergency [facility] Emergency Room [address] [place] [address] Anselmo Madden MD Chest Pain Discharge Disposition: Home or Self Care (Routine Discharge) 01/02/2024 Travel 01/01/2024 12:27 PM PREASSEMBLER AND INSPECTOR - 01/01/2024 11:59 PM PREASSEMBLER AND INSPECTOR Hospital Encounter [facility] [address] [place] [address] Francisco Lennon, DO Discharge Disposition: Home or Self Care (Routine Discharge) 01/01/2024 Travel from Last 3 Months Social History Tobacco Use Types Packs/Day Years Used Date Smoking Tobacco: Never Assessed Sex and Gender Information Value Date Recorded Sex Assigned at Not on file Legal Sex Male 1:10 PM CDT Gender Identity Not on file Sexual Orientation Not on file Last Filed Vital Signs Vital Sign Reading Time Taken Comments Blood Pressure 142/92 01/02/2024 12:30 PM PREASSEMBLER AND INSPECTOR Pulse 57 01/02/2024 12:30 PM PREASSEMBLER AND INSPECTOR Temperature 36.6 ??C (97.8 ??F) 01/02/2024 1 0:21 AM PREASSEMBLER AND INSPECTOR Respiratory Rate 17 01/02/2024 12:3 0 PM PREASSEMBLER AND INSPECTOR Oxygen Saturation 96% 01/02/2024 12: 30 PM PREASSEMBLER AND INSPECTOR Inhaled Oxygen Concentration - - Weight 98.4 kg (216 lb 14.9 oz) 024 10:21 AM PREASSEMBLER AND INSPECTOR Height 177.8 cm (5' 10 ) 01/02/2024 10: 21 AM PREASSEMBLER AND INSPECTOR Body Mass Index 31.13 01/02/2024 10:21 AM PREASSEMBLER AND INSPECTOR Plan of Treatment Health Maintenance Due Date Last Done Comments Annual Physical 01/17/1987 Hepatitis C 01/17/2002 Hepatitis B Vaccines (1 of 3 - 19+ 3-dose series) 01/17/2003 COVID-19 Vaccine ( season) 2023 Influenza Adult (#1) 2023 DTaP, Tdap and Td Vaccines (7 - Td or Tdap) 08/05/2032 08/05/2022, 09/27/1989, 08/20/1985, Additional history exists HPV Vaccines Aged Out No longer eligi ble based on patient's age to complete this topic Meningococcal Vaccine Aged Out No bunny [place] eligible based on patient's age to complete this topic Pneumococcal Vaccine: Pediatrics (0 to 5 Years) and At-Risk Patients (6 to 64 Years) Aged Out No longer eligible based on patient's age to complete this topic RSV Immunizations Under 20 Months Aged Out No longer eligible based on patient's age to complete this topic Procedures Procedure Name Priority Date/Time Associated Diagnosis Comments XR CHEST PA+LAT STAT 01/02/2024 11:14 AM PREASSEMBLER AND INSPECTOR TROPONIN, QUANT STAT 01/02/2024 10:29 AM PREASSEMBLER AND INSPECTOR D-DIMER, QUANTITATIVE STAT 01/02/2024 10:29 AM PREASSEMBLER AND INSPECTOR COMPREHENSIVE METABOLIC PANEL STAT 01/02/2024 10:29 AM PREASSEMBLER AND INSPECTOR CBC W/DIFF AUTOMATED STAT 01/02/2024 10:29 AM PREASSEMBLER AND INSPECTOR ECG 12-LEAD Routine 01/02/2024 10:23 AM PREASSEMBLER AND INSPECTOR MRI ELBOW RT WO CON Routine 01/01/2024 1 :42 PM PREASSEMBLER AND INSPECTOR Pain in right elbow from Last 3 Months Results * XR CHEST PA+LAT (01/02/2024 11:14 AM PREASSEMBLER AND INSPECTOR) Anatomical Region Laterality Modality Chest Radiographic Gwendolyn ging 01/02/2024 11:3 2 AM PREASSEMBLER AND INSPECTOR Impressions 01/02/2024 11:33 AM PREASSEMBLER AND INSPECTOR =====IMPRESSION:===== No acute findings. Ordered By: ANSELMO MADDEN Interpreted By: Jose Miguel Lind, 01/02/2024 11:32 AM Narrative 01/02/2024 11:33 AM PREASSEMBLER AND INSPECTOR [facility] [address] [place] [address] EXAMINATION: PA AND LATERAL CHEST Exam date/time: 01/02/2024 11:05 AM Reason For Exam: ??chest pain ? Comparison: None Technique: 2 views. Findings: ??Heart size normal. Proximal airways unremarkable. No suspicious pulmonary lesion, pneumothorax, or pleural effusion. Procedure Note Jose L Lind MD - 01/02/2024 [facility] [address] [place] [address] EXAMINATION: PA AND LATERAL CHEST Exam date/time: 01/02/2024 11:05 AM Reason For Exam: chest pain Comparison: None Technique: 2 views. Findings: Heart size normal. Proximal airways unremarkable. No suspiciouspulmonary lesion, pneumothorax, or pleural effusion. =====IMPRESSION:===== No acute findings. Ordered By: ANSELMO MADDEN Interpreted By: Jose Miguel Lind, 01/02/2024 11:32 AM us Anselmo Madden MD GENERAL IMAGING Final Result * (ABNORMAL) COMPREHENSIVE METABOLIC PANEL (01/02/2024 10:29 AM PREASSEMBLER AND INSPECTOR) GLUCOSE 89 70 - 99 MG/DL 01/02/2024 11:07 AM [facility] BUN 11 7 - 18 MG/DL 01/02/2024 11:07 AM [facility] CREATININE S/P/B 1.21 0.7 - 1.3 MG/DL 01/02/2024 11:07 AM [facility] SODIUM S/P/B 139 136 - 145 MMOL/L 01/02/2024 11:07 AM [facility] POTASSIUM S/P/B 4.2 3.5 - 5.1 MMOL/L 01/02/2024 11:07 AM [facility] CHLORIDE S/P/B 102 100 - 108 MMOL/L 01/02/2024 11:07 AM [facility] CO2 28.5 21 - 32 MMOL/L 01/02/2024 11:07 AM [facility] CALCIUM S/P/B 9.5 8.5 - 10.1 MG/DL 01/02/2024 11:07 AM [facility] BILIRUBIN TOTAL S/P/B 1.0 0.2 - 1.2 MG/DL 01/02/2024 11:07 AM [facility] TOTAL PROTEIN S/P/B 8.8(H) 6.4 - 8.2 G/DL 01/02/2024 11:07 AM [facility] ALBUMIN S/P/B 3.9 3.4 - 5.0 G/DL 01/02/2024 11:07 AM [facility] AST 87(H) 15 - 37 U/L 01/02/2024 11:07 AM [facility] ALT 139(H) 16 - 60 U/L 01/02/2024 11:07 AM [facility] ALKALINE PHOSPHATASE S/P/B 132 50 - 136 U/L 01/02/2024 11:07 AM [facility] ANION GAP 8.5 5 - 15 MMOL/L 01/02/2024 11:07 AM [facility] BUN CREATININE RATIO 9.1 6 - 26 01/02/2024 11:07 AM [facility] A/G RATIO 0.8(L) 1.0 - 2.0 RATIO 01/02/2024 11:07 AM [facility] GFR ESTIMATE 78(L) >90 ML/MIN/1.7 3 M2 01/02/2024 11:07 AM [facility] Comment: NOTE: eGFR is not calculated for patients <18 years of age. This is an estimated GFR calculation using the new CKD EPI creatinine equation without race and so does not require a correction factor for race. This estimated GFR should not be used for calculating drug doses. 01/02/2024 10:2 9 AM PREASSEMBLER AND INSPECTOR Anselmo Madden MD LABORATORY Final Result [facility] [address] [place] [address], * D-DIMER, QUANTITATIVE (01/02/2024 10:29 AM PREASSEMBLER AND INSPECTOR) D-DIMER 227 0 - 500 ng{FEU}/mL 01/02/2024 10:59 AM [facility] Comment: D-Dimer values less than or equal to 500 ng/mL FEU have a negative predictive value of >95% for exclusion of deep vein thrombosis and pulmonary embolism. In patients over 50 (who tend to have higher normal baseline D-Dimer values), recent studies suggest age-adjusted D-Dimer cutoff values (calculated as: age [years] x 10 ng/mL) result in equivalent outcomes and no additional false negative findings. 01/02/2024 10:2 9 AM PREASSEMBLER AND INSPECTOR us Anselmo Madden MD LABORATORY Final Result [facility] [address] [place] [address], [place] [phone] * (ABNORMAL) CBC W/DIFF AUTOMATED (01/02/2024 10:29 AM PREASSEMBLER AND INSPECTOR) WBC 9.14 4.4 - 11.0 x10'3/uL 01/02/2024 11:22 AM [facility] RBC 5.84 4.50 - 5.90 x10'6/uL 01/02/2024 11:22 AM [facility] HGB 18.2(H) 14.0 - 17.5 G/DL 01/02/2024 11:22 AM [facility] HCT 52.6(H) 41.5 - 50.4 % 01/02/2024 11:22 AM [facility] MCV 90.1 80.0 - 96.0 FL 01/02/2024 11:22 AM [facility] MCH 31.2 26.5 - 31.4 PG 01/02/2024 11:22 AM [facility] MCHC 34.6 31.9 - 34.8 G/DL 01/02/2024 11:22 AM [facility] RDW 13.7 12.3 - 14.3 % 01/02/2024 11:22 AM [facility] PLT 246 151 - 353 x10'3/uL 01/02/2024 11:22 AM [facility] MPV 10.8 9.7 - 11.9 FL 01/02/2024 11:22 AM [facility] RBC MORPHOLOGY NORMAL 01/02/2024 11:22 AM [facility] PLT MORPH. NORMAL 01/02/2024 11:22 AM [facility] WBC MORPHOLOGY NORMAL 01/02/2024 11:22 AM [facility] LYMPHOCYTES % 23.0 15.8 - 45.0 % 01/02/2024 11:22 AM [facility] NEUTROPHILS % 66.3 42.1 - 71.9 % 01/02/2024 11:22 AM [facility] MONOCYTES % 7.9 5.7 - 12.5 % 01/02/2024 11:22 AM [facility] EOSINOPHILS 1.9 0.0 - 5.6 % 01/02/2024 11:22 AM [facility] BASOPHILS 0.7 0.0 - 1.3 % 01/02/2024 11:22 AM [facility] ABS. NEUTROPHILS 6.07(H) 1.40 - 6.00 x10'3/uL 01/02/2024 11:22 AM [facility] IMMATURE GRANS % 0.2 0.0 - 0.5 % 01/02/2024 11:22 AM [facility] ABS. LYMPHOCYTES 2.10 0.80 - 4.70 x10'3/uL 01/02/2024 11:22 AM [facility] 01/02/2024 10:2 9 AM PREASSEMBLER AND INSPECTOR us Anselmo Madden MD LABORATORY Final Result [facility] [address] [place] [address], * TROPONIN, QUANT (01/02/2024 10:29 AM PREASSEMBLER AND INSPECTOR) TROPONIN I HIGH SENSITIVITY 15 0 - 75 ng/L 01/02/2024 11:09 AM PREASSEMBLER AND INSPECTOR [facility] Comment: HIGH DOSES OF BIOTIN, TROPONIN-SPECIFIC AUTOANTIBODIES, AND ANTIBODY THERAPY CONTAINING HAMA MAY INTERFERE WITH THIS TEST RESULT. CORRELATION TO CLINICAL HISTORY AND PRESENTATION RECOMMENDED. 01/02/2024 10:2 9 AM PREASSEMBLER AND INSPECTOR Anselmo Madden MD LABORATORY Final Result [facility] [address] [place] [address], * ECG 12 lead (01/02/2024 10:23 AM PREASSEMBLER AND INSPECTOR) 01/02/2024 10:2 3 AM PREASSEMBLER AND INSPECTOR Narrative [facility] ([facility] RAD - 01/02/2024 4:59 PM PREASSEMBLER AND INSPECTOR ?[facility] ? Test Date: ?2024-01-02 Pat Name: ? AGUILA MARILY ?Department: ?? 85 ? Room: ? Gender: ? Male ? Recycling Collections Driver: ?? : ?[id number] ? Requested By: ANSELMO WEBSTER Order Number: [id number] ? Reading : ?? Abundio Dillon ? Measurements Intervals ?[place] ? Rate: ? 52 ? P: ?19 FL: ? 197 ?QRS: ?-12 QRSD: ? 113 ?T: ?-13 QT: ? 418 ? QTc: ?390 ? Interpretive Statements SINUS BRADYCARDIA WITH MARKED SINUS ARRHYTHMIA MODERATE INTRAVENTRICULAR CONDUCTION DELAY ??[110+ ms QRS DURATION] VOLTAGE CRITERIA FOR LVH ??[MEETS CRITERIA IN ONE OF: R(aVL), S(V1), R(V5), R(V5/V6)+S(V1)] No previous ECG available for comparison SSEMBLER AND INSPECTOR Procedure Note Abundio Dillon MD - 01/02/2024 [facility] Test Date: 2024-01-02 Pat Name: AGUILA CALIXTO Department: 85 Room: Gender: Male Recycling Collections Driver: : [id number] Requested By: ANSELMO MADDEN Order Number: [id number] Reading MD: Abundio Dillon Measurements Intervals [place] Rate: 52 P: 19 FL: 197 QRS: -12 QRSD: 113 T: -13 QT: 418 QTc: 390 Interpretive Statements SINUS BRADYCARDIA WITH MARKED SINUS ARRHYTHMIA MODERATE INTRAVENTRICULAR CONDUCTION DELAY [110+ ms QRS DURATION] VOLTAGE CRITERIA FOR LVH [MEETS CRITERIA IN ONE OF: R(aVL), S(V1),R(V5), R(V5/V6)+S(V1)] No previous ECG available for comparison SSEMBLER AND INSPECTOR us Anselmo Madden MD ECG ORDERABLES Final Result Performing Organization Address City/State/[facility] Co de Phone Number [facility] ([facility] RAD * MRI ELBOW RT WO CON (01/01/2024 1:42 PM PREASSEMBLER AND INSPECTOR) Anatomical Region Laterality Modality Elbow Magnetic Resonan ce 01/05/2024 9:38 AM PREASSEMBLER AND INSPECTOR Impressions 01/05/2024 9:46 AM PREASSEMBLER AND INSPECTOR IMPRESSION: 1. ??Mild intermediate signal intensity and thickening of the insertional fibers of the common extensor tendon, reflecting mild insertional tendinosis with perhaps a low-grade partial thickness tearing but overall, the extent of tearing is significantly improved compared to the prior examination. 2. ??Suboptimal visualization of the proximal fibers of the radial collateral and lateral ulnar collateral ligament on this nonaugmented examination, but no evidence is seen to suggest fluid-filled tear of the lateral ulnar collateral or radial collateral ligament. ??If clinically warranted, this could be further evaluated with MR arthrography. 3. ??Small ulnotrochlear articulation osteophytes. Referred By: FRANCISCO LENNON Interpreted By: Isaias Michel DO, 01/05/2024 9:38 AM Narrative 01/05/2024 9:46 AM PREASSEMBLER AND INSPECTOR [facility] [address] [place] [id number] MRI of the right elbow without contrast Exam Date: January 01, 2024. History: Chronic elbow pain and weakness located laterally. ??History of tendon repair. Comparison Studies: Outside MRI of the right elbow 08/25/2021. TECHNIQUE: Multiplanar, multisequence MR imaging of the right elbow was performed without intravenous contrast. FINDINGS: * ??Tendons: The biceps and brachialis tendons are intact. ??The triceps tendon is intact. ??The common flexor tendon is intact. ??There is mild intermediate signal intensity and thickening of the insertional fibers of the common extensor tendon, reflecting mild insertional tendinosis with perhaps a low-grade partial thickness tearing but overall, the extent of tearing is significantly improved compared to the prior examination. * ??Ligaments: Evaluation of the intrinsic ligaments of the elbow is suboptimal on this examination obtained without intra-articular contrast. ??The ulnar collateral ligament appears intact. ??The proximal fibers of the radial collateral ligament and lateral ulnar collateral ligament are suboptimally visualized on this nonaugmented examination but no evidence is seen to suggest fluid-filled tear of the lateral ulnar collateral ligament or radial collateral ligament. ??No evidence is seen to suggest gross disruption of the annular ligament. * ??Joint: There is no joint effusion. ??No discrete intra-articular body is seen. ??Small osteophytes are noted along the ulnotrochlear articulation. * ??Cartilage: No fluid-filled articular cartilage defect is seen on this nonaugmented examination. * ??Peripheral Nerves: The ulnar, median, and radial nerves are without evidence to suggest enlargement or signal abnormality. * ??Miscellaneous: No marrow signal abnormality is seen to suggest acute fracture or contusion. Procedure Note Isaias Michel, - 01/05/2024 [facility] [address] [place] [id number] MRI of the right elbow without contrast Exam Date: January 01, 2024. History: Chronic elbow pain and weakness located laterally. History oftendon repair. Comparison Studies: Outside MRI of the right elbow 08/25/2021. TECHNIQUE: Multiplanar, multisequence MR imaging of the right elbow wasperformed without intravenous contrast. FINDINGS: * Tendons: The biceps and brachialis tendons are intact. The tricepstendon is intact. The common flexor tendon is intact. There is mildintermediate signal intensity and thickening of the insertional fibers ofthe common extensor tendon, reflecting mild insertional tendinosis withperhaps a low-grade partial thickness tearing but overall, the extent oftearing is significantly improved compared to the prior examination. * Ligaments: Evaluation of the intrinsic ligaments of the elbow issuboptimal on this examination obtained without intra-articular contrast.The ulnar collateral ligament appears intact. The proximal fibers of theradial collateral ligament and lateral ulnar collateral ligament aresuboptimally visualized on this nonaugmented examination but no evidenceis seen to suggest fluid-filled tear of the lateral ulnar collateralligament or radial collateral ligament. No evidence is seen to suggestgross disruption of the annular ligament. * Joint: There is no joint effusion. No discrete intra-articular body isseen. Small osteophytes are noted along the ulnotrochlear articulation. * Cartilage: No fluid-filled articular cartilage defect is seen on thisnonaugmented examination. * Peripheral Nerves: The ulnar, median, and radial nerves are withoutevidence to suggest enlargement or signal abnormality. * Miscellaneous: No marrow signal abnormality is seen to suggest acutefracture or contusion. IMPRESSION: 1. Mild intermediate signal intensity and thickening of the insertionalfibers of the common extensor tendon, reflecting mild insertionaltendinosis with perhaps a low-grade partial thickness tearing but overall,the extent of tearing is significantly improved compared to the priorexamination. 2. Suboptimal visualization of the proximal fibers of the radialcollateral and lateral ulnar collateral ligament on this nonaugmentedexamination, but no evidence is seen to suggest fluid-filled tear of thelateral ulnar collateral or radial collateral ligament. If clinicallywarranted, this could be further evaluated with MR arthrography. 3. Small ulnotrochlear articulation osteophytes. Referred By: FRANCISCO LENNON Interpreted By: Isaias Michel DO, 01/05/2024 9:38 AM Francisco Lennon DO MRI Final Result from Last 3 Months Insurance [facility] Care Teams Inside Upholsterer Relationship Specialty Start Date End Date Julius Garzon MD [address] [place] [address] PCP - General FAMILY PRACTICE 01/01/24
== END 2024-03-06 07:26 | disposition home or self-care (01) ==
LOC: ANHCARD 07:26
PROVIDERS: PCP Family Medicine; Visit Provider Internal Medicine Cardiovascular Disease
DX: R07.9 Chest pain, unspecified (principal)
CPT/HCPCS: 93017; 93306

== ENCOUNTER 2024-04-23 08:17 | Outpatient (CLI) | payer OTHER, SELFPAY ==
--- NOTE | ~2024-04-23 | US_ITS ---
COMPLETE ABDOMINAL ULTRASOUND Ordering provider: MOLLY Pearce History: . R74.8 - Abnormal levels of other serum enzymes . Comparison: None. FINDINGS: LIVER: Normal size and increased echotexture. No focal hepatic lesions or perihepatic fluid collectio ns are identified. GALLBLADDER: Surgically removed. BILIARY DUCTS: No evidence for intra or extrahepatic biliary dilation. Common bile duct measures 4.5 mm in diameter which is within normal limits. PANCREAS: Visualized portion shows Normal echotexture and size. SPLEEN: Normal size, echotexture and contour and measures 11.9 cm in length. KIDNEYS: Right measures 10.4x 8.4x 6 cm in length and the left 9.2x 5.1x 5.1 cm in length. There is n o evidence for hydronephrosis, solid renal mass, renal calculi or perinephric fluid collections. No r enal cysts. UPPER ABDOMINAL AORTA: Normal in caliber. IVC: Patent. FREE FLUID: None. IMPRESSION: Fat infiltration of the liver. Otherwise, Unremarkable complete ultrasound of the abdomen. Reviewed, dictated and finalized at location A. IMPRESSION: Fat infiltration of the liver. Otherwise, Unremarkable complete ultrasound of t he abdomen.
== END 2024-04-23 08:18 | disposition home or self-care (01) ==
PROVIDERS: PCP Nurse Practitioner Family; Visit Provider Nurse Practitioner Family
DX: R74.8 Abnormal levels of other serum enzymes (principal); K76.0 Fatty (change of) liver, not elsewhere classified
CPT/HCPCS: 76700

== ENCOUNTER 2025-01-07 15:57 | Outpatient (CLI) | payer OTHER, SELFPAY ==
--- NOTE | ~2025-01-07 | XR_ITS ---
EXAMINATION: XR shoulder RT min 2V, 01/07/2025 16:05 EDUCATIONAL DIRECTOR HISTORY: pain in shoulder; limited ROM x 2 weeks COMPARISON: No comparisons available. Findings: No acute fracture or malalignment. No significant degenerative changes. Soft tissues unremarkable. Impression: No acute fracture or malalignment. Reviewed, dictated and finalized at location P. ATIONAL DIRECTOR Impression: No acute fracture or malalignment.
--- OUTSIDE RECORDS SUMMARY | 2025-01-07 17:20 | XMS_ITS | Clinical Summary ---
Author Organization [facility] Address [facility] [place] [address] Care Team Providers Care Caul Dresser Name Role Phone Julius Garzon MD Primary Care Provider [phone] Allergies No known active allergies Medications No known medications Social History Tobacco Use Types Packs/Day Years Used Date Smoking Tobacco: Never Assessed Sex and Gender Information Value Date Recorded Sex Assigned at Not on file Legal Sex Male 1:10 PM CDT Gender Identity Not on file Sexual Orientation Not on file Last Filed Vital Signs Vital Sign Reading Time Taken Comments Blood Pressure 142/92 01/02/2024 12:30 PM BLUEPRINT DEVELOPER Pulse 57 01/02/2024 12:30 PM BLUEPRINT DEVELOPER Temperature 36.6 C (97.8 F) 01/02/2024 10:21 AM BLUEPRINT DEVELOPER Respiratory Rate 17 01/02/2024 12:3 0 PM BLUEPRINT DEVELOPER Oxygen Saturation 96% 01/02/2024 12: 30 PM BLUEPRINT DEVELOPER Inhaled Oxygen Concentration - - Weight 98.4 kg (216 lb 14.9 oz) 024 10:21 AM BLUEPRINT DEVELOPER Height 177.8 cm (5' 10) 01/02/2024 10: 21 AM BLUEPRINT DEVELOPER Body Mass Index 31.13 01/02/2024 10:21 AM BLUEPRINT DEVELOPER Plan of Treatment Health Maintenance Due Date Last Done Comments Annual Physical 01/17/1987 Hepatitis C 01/17/2002 Hepatitis B Vaccines (1 of 3 - 19+ 3-dose series) 01/17/2003 HPV Vaccines (1 - 3-dose SCDM series) 01/17/2011 COVID-19 Vaccine ( season) 2024 Influenza Adult (#1) 2024 DTaP, Tdap and Td Vaccines (7 - Td or Tdap) 08/05/2032 08/05/2022, 09/27/1989, 08/20/1985, Additional history exists Hepatitis A Vaccines Aged Out No long er eligible based on patient's age to complete this topic Meningococcal B Vaccine Aged Out No l onger eligible based on patient's age to complete this topic Meningococcal Vaccine Aged Out No bunny [place] eligible based on patient's age to complete this topic Pneumococcal Vaccine: Pediatrics (0 to 5 Years) and At-Risk Patients (6 to 49 Years) Aged Out No longer eligible based on patient's age to complete this topic RSV Immunizations Under 20 Months Aged Out No longer eligible based on patient's age to complete this topic Insurance [facility] Care Teams Caul Dresser Relationship Specialty Start Date End Date Julius Garzon MD [address] [address] PCP - General FAMILY PRACTICE 01/01/24
== END 2025-01-07 15:58 | disposition home or self-care (01) ==
PROVIDERS: PCP Family Medicine; Visit Provider Nurse Practitioner Adult Health
DX: S49.91XA Unspecified injury of right shoulder and upper arm, initial encounter (principal); X58.XXXA Exposure to other specified factors, initial encounter; M25.511 Pain in right shoulder
CPT/HCPCS: 73030